=== PATIENT | female | born 1935 | race Caucasian/White ===

== ENCOUNTER 2024-09-12 14:58 | Emergency (ER) | payer MEDICARE, SELFPAY ==
[2024-09-12] VITALS (75 sets, daily range): BP systolic 70–110; BP diastolic 43–90; PULSE 75–89; RESP 10–28; TEMP 36.4–36.6; O2SAT 84–100
--- NOTE | ~2024-09-12 | CT_ITS ---
EXAMINATION: CTA chest PE protocol DATE: 09/12/2024 17:45 INDICATION: Deep venous thrombosis. Hypoxia. TECHNIQUE: Computed tomography angiography (CTA) of the chest was performed with 100 mL Omnipaque-350 intravenous contrast timed to evaluate the pulmonary arteries. Coronal maximum intensity projection 3D-reconstructions were created by the technologist. Automated exposure control and iterative reconst ruction technique were employed. Exam dose: 242.27 mGy-cm total exam DLP. COMPARISON: 09/12/2024 portable AP chest 09/12/2024 venous duplex examination of the lower extremities FINDINGS: Segmental and subsegmental pulmonary artery emboli are noted in both upper lobes, middle lo be and both lower lobes. There is evidence of right ventricular strain. Cardiomegaly. Coronary atherosclerosis. Aortic valve calcification. The ascending aorta measures upper limits diameter at 4 cm. The aortic ar ch measures up to 2.9 cm diameter. No thoracic or abdominal aortic dissection. No pericardial or pleural effusion. No hilar or mediastinal mass lesion or lymphadenopathy. Large hiatal hernia. There are scattered infiltrates and/or atelectasis involving primarily the middle and both lower lobe s and to a lesser extent the lingula. 3 mm middle lobe nodular density (series 4 image 60). 5.3 mm pleural-based middle lobe nodular density (series 4 image 57) Cholelithiasis is incidentally noted. Normal morphology of the adrenal glands. Bilateral nephrolithiasis, more prominent on the left. Bilateral glenohumeral osteoarthritis. Prominent degenerative disease of the lower cervical spine including particularly severe degenerative disc disease at C6-7. Chronic appearing moderate loss of height and anterior wedging of T7. Degenerative disc disease of th e thoracic and lumbar spine. IMPRESSION: Bilateral upper and lower lobe and middle lobe pulmonary emboli and evidence of right ve ntricular strain 2 small middle lobe nodular densities and scattered patchy right mid and bilateral lower lung infiltr ate or atelectasis Cardiomegaly, aortic valve calcification, coronary atherosclerosis Large hiatal hernia Cholelithiasis Bilateral nephrolithiasis Dr. Braxton telephoned the report of extensive bilateral pulmonary emboli involving all lobes and right ventricular strain on 09/12/2024 at 1800 hours to emergency room physician media center assistant Emily. Reviewed, dictated and finalized at [facility]. Reviewed, dictated and finalized at [facility]. IMPRESSION: Bilateral upper and lower lobe and middle lobe pulmonary emboli an d evidence of right ventricular strain 2 small middle lobe nodular densities and scattered patchy right mid and bilate ral lower lung infiltrate or atelectasis Cardiomegaly, aortic valve calcification, coronary atherosclerosis Large hiatal hernia Cholelithiasis Bilateral nephrolithiasis Dr. Braxton telephoned the report of extensive bilateral pulmonary emboli involvin g all lobes and right ventricular strain on 09/12/2024 at 1800 hours to emergenc y room physician media center assistant Emily.
--- NOTE | ~2024-09-12 | CT_ITS ---
EXAMINATION: CTA LE DATE: 09/12/2024 17:04 INDICATION: No left leg pulses, faint right leg pulses TECHNIQUE: Computed tomographic angiography (CTA) of the neck was performed with 100 mL Omnipaque-350 intravenous contrast. Exam dose: 765.64 mGy-cm total exam DLP. COMPARISON: None. FINDINGS: Cardiomegaly. No pericardial effusion. Hiatal hernia. Multiple small stones are noted in the dependent gallbladder. No bile duct dilatation. The upper liver and spleen are excluded from the examination. The liver and spleen otherwise appear u nremarkable. No pancreatic mass lesion or pancreatic duct dilatation. Normal morphology of the adrenal glands. Large nonobstructing left renal calculus measuring up to 10.8 x 12.5 cm. 1.7 cm right renal cyst. No ureteral calculus or hydroureteronephrosis is detected. The urinary bladd er is unremarkable. Retroverted uterus. Diverticulosis of the colon; no CT evidence of diverticulitis. No bowel obstruction or intraperitonea l free air. There is extensive atherosclerotic calcification of the abdominal aorta. The suprarenal abdominal aor ta measures up to 3.1 cm diameter. Normal caliber of the remainder of the abdominal aorta. There is e ctasia and calcification of the common iliac arteries, measuring up to approximately 1.3 cm diameter. However, there is no abdominal aortic left or right common, internal or external iliac, common femora l, femoral, popliteal significant luminal stenosis or occlusion. The trifurcation arteries are intact bilaterally into the lower legs, with opacified dorsalis pedis and posterior tibial artery in the ri ght foot, opacified dorsalis pedis artery to the hindfoot and posterior tibial artery opacification i nto the more distal foot. There is extensive edema of both lower extremities as well as the pelvis. IMPRESSION: Slight suprarenal abdominal aortic aneurysm measuring up to 3.1 cm Ectasia of the common iliac arteries, measuring up to approximately 1.3 cm diameter No significant stenosis or occlusion of the abdominal aorta, iliac or femoral, popliteal arteries; th ere is three-vessel runoff into both lower legs Cardiomegaly Hiatal hernia Cholelithiasis Left nonobstructive nephrolithiasis 1.7 cm right renal cysts Diverticulosis of the colon Reviewed, dictated and finalized at [facility]. Reviewed, dictated and finalized at [facility]. IMPRESSION: Slight suprarenal abdominal aortic aneurysm measuring up to 3.1 cm Ectasia of the common iliac arteries, measuring up to approximately 1.3 cm diam eter No significant stenosis or occlusion of the abdominal aorta, iliac or femoral, popliteal arteries; there is three-vessel runoff into both lower legs Cardiomegaly Hiatal hernia Cholelithiasis Left nonobstructive nephrolithiasis 1.7 cm right renal cysts Diverticulosis of the colon
--- NOTE | ~2024-09-12 | XR_ITS ---
XR chest 1V portable DATE: 09/12/2024 16:08 INDICATION: Dyspnea TECHNIQUE: Portable upright AP chest on 09/12/2024 at 1605 hours COMPARISON: None FINDINGS: Cardiomegaly. Aortic arch calcification. Large hiatal hernia. There is bilateral mid lung linear atelectasis or scarring and bilateral mild infiltrate or atelectas is in both lower lung hurley. No pleural effusion or pulmonary vascular congestion or pneumothorax is evident. Lateral glenohumeral osteoarthritis. Right rotator cuff atrophy. Diffuse osteopenia. IMPRESSION: Cardiomegaly, aortic atherosclerosis Linear atelectasis or scarring in both mid lungs Bilateral mild patchy lower lung infiltrate and/or atelectasis Large hiatal hernia Osteopenia Bilateral glenohumeral osteoarthritis, prominent right rotator cuff atrophy Reviewed, dictated and finalized at [facility].
--- NOTE | ~2024-09-12 | CT_ITS ---
EXAMINATION: CT brain wo con DATE: 09/12/2024 18:54 INDICATION: Rule out cranial hemorrhage TECHNIQUE: Computed tomography (CT) of the head was performed without intravenous contrast. The mA wa s adjusted according to patient size. Iterative reconstruction technique was employed. Exam dose: 68 1.00 mGy-cm total exam DLP. COMPARISON: None FINDINGS: There is some contrast material on board from the 09/12/2024 CT pulmonary scan performed ear lier today. No intracranial mass lesion or hemorrhage or cerebrovascular accident, midline shift or mass effect i s noted. There are bilateral carotid siphon internal carotid artery calcifications. No vertebrobasilar or da silva tid cerebral arterial occlusion is noted. No subdural or epidural hematoma. No orbital mass lesion. Status post bilateral cataract repair. The mastoid air cells and paranasal sinuses are normally developed and aerated. No fracture or bone destruction of the cranial vault. IMPRESSION: No acute intracranial finding or hemorrhage Reviewed, dictated and finalized at [facility]. Reviewed, dictated and finalized at [facility].
--- NOTE | ~2024-09-12 | US_ITS ---
US venous doppler [facility] DATE: 09/12/2024 16:39 INDICATION: Absent left leg pulses, faint pulses on the right TECHNIQUE: Real-time and color flow imaging and Doppler analysis of the veins of both lower extremiti es COMPARISON: None FINDINGS: There is intraluminal thrombus within the right common femoral vein, with only partial comp ression of this vessel. Otherwise there is normal spontaneous and phasic flow, normal color flow signal, and normal augmentat ion and compression of the deep veins of both lower extremities. IMPRESSION: Partial thrombosis of right common femoral vein Reviewed, dictated and finalized at [facility]. Reviewed, dictated and finalized at [facility].
--- NOTE | 2024-09-12 15:33 | ECG_ITS ---
Test Date: 2024-09-12 16:38:38 Measurements Intervals Pauline Rate: 78 P: 54 WV: 194 QRS: -22 QRSD: 106 T: 180 QT: 439 QTc: 502 Interpretive Statements SINUS RHYTHM WITH SINUS ARRHYTHMIA BORDERLINE LEFT AXIS DEVIATION [QRS AXIS < -20] MODERATE T-WAVE ABNORMALITY, CONSIDER ANTEROLATERAL ISCHEMIA [-0.1+ mV T-WAVE IN V3-V6] No previous ECG available for comparison Electronically Signed On 09-12-2024 17:44:16 CDT by Suman Hanley M.D.
--- NOTE | 2024-09-12 15:36 | ED_ITS ---
HPI - Extremity Injury (Lower) General Chief Complaint: Extremity Injury, Lower Stated Complaint: BLE edema Time Seen by Provider: 09/12/24 15:10 History of Present Illness HPI Narrative: 89-year-old female with no known past medical history presents emergency department with family at bedside for edema bilateral lower extremities, right greater than left. Patient states about a month ago her dog jumped on her right lower leg and scratched her resulting in redness and swelling to her leg. The family states they have been attempting to convince the patient to seek medical attention but she has been refusing. They were successful and convincing her to come to the ER today. Last Tdap unknown. She is reporting redness and swelling to the extremity and weeping over the past week. The patient states she has had edema to bilateral lower extremities for a while but is unable to elaborate for how long. She notes she has had increasing exertional dyspnea and orthopnea. States she sleeps sitting up. She denies history of heart failure but notes a family history of heart failure. She does not smoke. Denies history of asthma or COPD, cough or congestion, fevers, nausea vomiting, abdominal pain. She also notes 2 days ago she slipped off of her couch onto the ground. Family reports that she was on the ground for approximately 2 hours until they were able to come home in his sister off of the ground. The patient states she did not hit her head or lose consciousness. She has no other injuries. She denies pain to her legs or feet. Family notes that the patient has not been seen by a medical provider in several years and does not take any medications. Related Data Allergies Allergy/AdvReac Type Severity Reaction Status Date / Time Penicillins Allergy Unknown Unknown Verified 09/12/24 16:23 Review of Systems 2 Review of Systems: All systems reviewed & are unremarkable except as noted in HPI and below Exam 2 Narrative: GENERAL: Well-appearing, well-nourished, and in no acute distress. HEAD: Normocephalic, atraumatic. EYES: PERRLA and EOMI. ENT: Nares clear, no rhinorrhea or epistaxis. Mucous membranes moist. NECK: Supple. CHEST: Clear to auscultation. No respiratory distress. HEART: Regular rate and rhythm. No murmur heard. Normal peripheral pulses. ABDOMEN: Soft, nontender, nondistended, normal active bowel sounds. RECTAL: Chaperoned by Francois Maria: No melena or hematochezia, Hemoccult negative EXTREMITIES: 3+ pitting edema to LLE with purpura to the toes, unable to palpate or doppler DP or PT pulse, cap refill prolonged. RLE4+ pitting edema with weeping, 4cm healing laceration with white base to the anterior tibia, surrounding erythema and warmth to lower extremity extending to the thigh SKIN: Warm, dry, no rash. NEURO: No focal deficits. Alert and oriented x3 Course Vital Signs Vital signs: Vital Signs Respiratory Rate 21 H 09/12/24 15:07 Temperature 97.9 F 09/12/24 22:39 Pulse Rate 79 09/12/24 22:39 Respiratory Rate 19 09/12/24 22:39 Blood Pressure 92/58 L 09/12/24 22:39 Pulse Oximetry 100 09/12/24 22:39 Oxygen Delivery Nasal Cannula 09/12/24 17:36 Oxygen Flow Rate 3 09/12/24 17:36 MDM - Extremity Injury (Lower) MDM Narrative Medical decision making narrative: 89-year-old female with no known past medical history presents to the ED with bilateral lower extremity edema, R>L, redness to the mid lower extremity after her dog scratched her leg month ago, exertional dyspnea and orthopnea. See HPI for further history. Upon arrival to the ED patient was found to be hypotensive at 84/67 and mildly tachypneic at 21. She denies dizziness or lightheadedness, no chest pain. She does appear to be extremely volume overloaded with extensive pitting edema to lower extremities and crackles throughout all lung hurley. Suspect undiagnosed CHF exacerbation, likely decompensated. Will refrain from IV fluids at this time due to concerns for volume overload and provide albumin and Lasix. Lab work shows leukocytosis of 11.3. Hemoglobin is low at 7.1 with a low MCV and MCHC. Patient has no history of GI bleeds, no reported hematochezia or melena. Hemoccult here is negative. Chemistries show creatinine of 1.09, BUN of 40 to, total bilirubin [place] 2[place] [address]. EKG shows sinus rhythm with sinus arrhythmia, normal [place] interval, prolonged QTC of 502, T-wave inversions in the lateral leads, no ST elevations or depressions. Troponin is undetectable. Lactic normal. UA with UTI. CTA of the lower extremities shows slight suprarenal abdominal aortic aneurysm measuring up to 3.1 cm, ectasias the common iliac arteries measuring up to approximately 1.3 cm in diameter, no significant stenosis or occlusion of the abdominal aorta, iliac or femoral, popliteal arteries. There is three-vessel runoff to both lower legs. Several incidental findings were noted on scan report. Bilateral lower extremity venous Doppler show a partial thrombosis of the right common femoral vein. Patient did become hypoxic in the ER and required 3 L of O2 nasal cannula, O2 saturations remained stable at 100% on 3 L. CTA chest PE added given hypoxia and DVT - shows bilateral upper and lower lobe and middle lobe pulmonary emboli and evidence of right ventricular strain. There are 2 small middle lobe nodular densities scattered patchy right mid and bilateral lower lung infiltrate or atelectasis. Patient and family were updated on results. Patient was started on heparin for PEs and DVT. Tdap was updated. She was started on vancomycin cefepime and doxycycline to cover for CAP, UTI and cellulitis. Blood pressure remained stable with a MAP greater than 65 after initiation of albumin. ABG shows hgb of 6.7, likely hemodilution or anemia of chronic disease. Again guaiac negative. Pt given a unit of blood. I did have a long discussion with patient and family at bedside regarding goals of care. Patient would like to be DNR/DNI status. I also discussed possible need for central line. Patient politely declines central line. Plan transfer to higher level of care. Discussed with [facility] ship construction teacher, Dr. Branch who accepts patient for transfer. Lab Data 09/12/24 15:44 09/12/24 15:44 Labs: Lab Results 09/12/24 09/12/24 09/12/24 Range/Units 15:44 15:44 19:53 WBC 11.3 H (4.5-10.0) K/mm3 RBC 4.41 (4.2-5.4) M/mm3 Hgb 7.1 L (12.0-15.0) g/dL Hct 25.3 L (37.0-47.0) % MCV 57.4 L (80-100) fl MCH 16.1 L (26-34) pg MCHC 28.1 L (32-36) g/dl RDW 25.1 H (11.5-14.5) % Plt Count 173 (150-375) k/mm3 MPV 8.8 (7.4-10.4) fl Immature Gran % (Auto) 1.8 H (0-0.5) % Neut % (Auto) 90.5 H (45.5-73.1) % Lymph % (Auto) 2.8 L (18.3-44.2) % Mellette % (Auto) 4.4 (2.6-8.5) % Eos % (Auto) 0.2 (0-4.4) % Baso % (Auto) 0.3 (0.2-1.2) % Lymph # (Auto) 0.31 L (0.9-3.2) K/mm3 Mellette # (Auto) 0.5 (0.1-0.6) K/mm3 Eos # (Auto) 0.0 (0-0.3) K/mm3 Baso # (Auto) 0.0 (0.0-0.1) K/mm3 Abs Immat Gran (auto) 0.20 H (0.00-0.031) K/mm3 Absolute Neuts (auto) 10.2 H (1.3-6.7) K/mm3 Absolute Nucleated RBC 0.130 H (0.0-0.012) K/mm3 Band Neutrophils % Not Reportable Nucleated RBC % 1.2 H (0.0-0.2) % Platelet Estimate Adequate (Adequate) % Immature Plt Fraction 2.2 (0.9-11.2) % Anisocytosis 3+ Target Cells 2+ Ovalocytes 1+ Schistocytes None seen PT 17.4 H (11.1-14.7) Seconds INR 1.4 APTT 35.9 (22.3-36.8) Seconds Sodium 141 (137-145) mmol/L Potassium 4.1 (3.4-5.0) mmol/L Chloride 106 (98-107) mmol/L Carbon Dioxide 23 (22-30) mmol/L Anion Gap 12 (4-12) mmol/L BUN 42 H (7-17) mg/dL Creatinine 1.09 H (0.7-1.0) mg/dL Estim Creat Clear Calc Not Reportable Estimated GFR 47 L (59 - ) Glucose 140 H (65-110) mg/dL Lactic Acid 2.0 (0.7-2.0) mmol/L Calcium 8.3 L (8.4-10.2) mg/dL Magnesium 2.3 (1.6-2.3) mg/dL Total Bilirubin 2.9 H (0.2-1.3) mg/dL AST 30 (14-36) U/L ALT 24 (6-35) U/L Alkaline Phosphatase 116 (38-126) U/L Troponin I < 0.012 Cancelled (0.000-0.034) ng/mL NT-Pro-B Natriuret Pep 41800 H (19.9-100) pg/mL Total Protein 7.0 (6.3-8.2) g/dL Albumin 3.1 L (3.5-5.1) g/dL Lipase 385 H (23-300) U/L Urine Color Yellow (Yellow) Urine Appearance Clear (Clear) Urine pH 5.0 (5.0-9.0) Ur Specific Sherrill 1.022 (1.001-1.035) Urine Protein Negative (Negative) mg/dL Urine Glucose (UA) Negative (Negative) mg/dL Urine Ketones Negative (Negative) mg/dL Ur Blood (Man) Trace (Negative) Urine Nitrate Positive H (Negative) Urine Bilirubin Negative (Negative) Urine Urobilinogen 1.0 (<2.0) mg/dL Leukocyte Esterase Rfl 1+ H (Negative) MICHAEL/UL Urine RBC 3-5 H (0-2) /hpf Urine WBC 21-50 H (0-3) /hpf Ur Squamous Epith Cells None seen (Few) /hpf Urine Bacteria 4+ H /hpf Urine Casts 3-5 Nasal MRSA (PCR) Influenza A (RT-PCR) Negative (Negative) Influenza B (RT-PCR) Negative (Negative) RSV (RT-PCR) Negative (Negative) SARS-CoV-2 RNA (RT-PCR) Negative (Negative) Blood Type O Positive Antibody Screen Negative Crossmatch See Detail 09/12/24 Range/Units 22:13 WBC (4.5-10.0) K/mm3 RBC (4.2-5.4) M/mm3 Hgb (12.0-15.0) g/dL Hct (37.0-47.0) % MCV (80-100) fl MCH (26-34) pg MCHC (32-36) g/dl RDW (11.5-14.5) % Plt Count (150-375) k/mm3 MPV (7.4-10.4) fl Immature Gran % (Auto) (0-0.5) % Neut % (Auto) (45.5-73.1) % Lymph % (Auto) (18.3-44.2) % Mellette % (Auto) (2.6-8.5) % Eos % (Auto) (0-4.4) % Baso % (Auto) (0.2-1.2) % Lymph # (Auto) (0.9-3.2) K/mm3 Mellette # (Auto) (0.1-0.6) K/mm3 Eos # (Auto) (0-0.3) K/mm3 Baso # (Auto) (0.0-0.1) K/mm3 Abs Immat Gran (auto) (0.00-0.031) K/mm3 Absolute Neuts (auto) (1.3-6.7) K/mm3 Absolute Nucleated RBC (0.0-0.012) K/mm3 Band Neutrophils % Nucleated RBC % (0.0-0.2) % Platelet Estimate (Adequate) % Immature Plt Fraction (0.9-11.2) % Anisocytosis Target Cells Ovalocytes Schistocytes PT (11.1-14.7) Seconds INR APTT (22.3-36.8) Seconds Sodium (137-145) mmol/L Potassium (3.4-5.0) mmol/L Chloride (98-107) mmol/L Carbon Dioxide (22-30) mmol/L Anion Gap (4-12) mmol/L BUN (7-17) mg/dL Creatinine (0.7-1.0) mg/dL Estim Creat Clear Calc Estimated GFR (59 - ) Glucose (65-110) mg/dL Lactic Acid (0.7-2.0) mmol/L Calcium (8.4-10.2) mg/dL Magnesium (1.6-2.3) mg/dL Total Bilirubin (0.2-1.3) mg/dL AST (14-36) U/L ALT (6-35) U/L Alkaline Phosphatase (38-126) U/L Troponin I (0.000-0.034) ng/mL NT-Pro-B Natriuret Pep (19.9-100) pg/mL Total Protein (6.3-8.2) g/dL Albumin (3.5-5.1) g/dL Lipase (23-300) U/L Urine Color (Yellow) Urine Appearance (Clear) Urine pH (5.0-9.0) Ur Specific Sherrill (1.001-1.035) Urine Protein (Negative) mg/dL Urine Glucose (UA) (Negative) mg/dL Urine Ketones (Negative) mg/dL Ur Blood (Man) (Negative) Urine Nitrate (Negative) Urine Bilirubin (Negative) Urine Urobilinogen (<2.0) mg/dL Leukocyte Esterase Rfl (Negative) MICHAEL/UL Urine RBC (0-2) /hpf Urine WBC (0-3) /hpf Ur Squamous Epith Cells (Few) /hpf Urine Bacteria /hpf Urine Casts Nasal MRSA (PCR) Pending Influenza A (RT-PCR) (Negative) Influenza B (RT-PCR) (Negative) RSV (RT-PCR) (Negative) SARS-CoV-2 RNA (RT-PCR) (Negative) Blood Type Antibody Screen Crossmatch ABG Data ABG results: 09/12/24 19:51 Puncture Site Left radial ABG pH 7.362 ABG pCO2 39.9 ABG pO2 79.7 L ABG PO2/FiO2 Ratio 2.66 ABG HCO3 22.1 ABG O2 Saturation 95.4 ABG O2 Content 8.8 L ABG Base Excess -3.0 A-a Gradient 87.3 Oxyhemoglobin 92.0 Total Hemoglobin 6.7 L* O2 Delivery Device Nasal cannula O2 Liters/Min 3.0 FiO2 30 Discharge Plan Discharge Clinical Impression: Volume overload, CAP (community acquired pneumonia), Cellulitis, Cardiomegaly, Pulmonary embolism, Abdominal aortic aneurysm, DVT (deep venous thrombosis), Acute UTI, Hypochromic microcytic anemia, NIESHA (acute kidney injury), Acute hypoxic respiratory failure Patient Disposition: Acute Care Hospital Condition: Guarded Prognosis Patient Language: Brazilian Follow-up/Referrals: PHYSICIAN NOT ON STAFF,NONSTAFF [Primary Care Provider] -
[2024-09-12 15:53] LABS: Basophils Percent Auto 0.3 % (0.2-1.2); Eosinophils Percent Auto 0.2 % (0-4.4); Hematocrit 25.3 % (37.0-47.0); Hemoglobin 7.1 g/dL (12.0-15.0); Immature Granulocyte Percent A 1.8 % (0-0.5); Immature Platelet Fraction Pct 2.2 % (0.9-11.2); Lymphocytes Absolute Auto 0.31 K/mm3 (0.9-3.2); Lymphocytes Percent Auto 2.8 % (18.3-44.2); Mean Corpuscular HGB Conc 28.1 g/dl (32-36); Mean Corpuscular Hemoglobin 16.1 pg (26-34); Mean Corpuscular Volume 57.4 fl (80-100); Mean Platelet Volume 8.8 fl (7.4-10.4); Monocytes Absolute Auto 0.5 K/mm3 (0.1-0.6); Monocytes Percent Auto 4.4 % (2.6-8.5); Neutrophils Absolute Auto 10.2 K/mm3 (1.3-6.7); Neutrophils Percent Auto 90.5 % (45.5-73.1); Nucleated Red Blood Cells Perc 1.2 % (0.0-0.2); Platelet Count Result 173 k/mm3 (150-375); Red Blood Count 4.41 M/mm3 (4.2-5.4); Red Cell Distribution Width 25.1 % (11.5-14.5); White Blood Count 11.3 K/mm3 (4.5-10.0)
[2024-09-12 16:01] LABS: Alanine Aminotransferase 24 U/L (6-35); Albumin Level 3.1 g/dL (3.5-5.1); Alkaline Phosphatase 116 U/L (38-126); Anion Gap 12 mmol/L (4-12); Aspartate Amino Transferase 30 U/L (14-36); Bilirubin,Total 2.9 mg/dL (0.2-1.3); Blood Urea Nitrogen 42 mg/dL (7-17); Calcium 8.3 mg/dL (8.4-10.2); Carbon Dioxide 23 mmol/L (22-30); Chloride 106 mmol/L (98-107); Estimated Glomerular Filt Rate 47; Glucose 140 mg/dL (65-110); Lipase 385 U/L (23-300); Magnesium 2.3 mg/dL (1.6-2.3); Potassium 4.1 mmol/L (3.4-5.0); Sodium 141 mmol/L (137-145)
[2024-09-12 16:05] LABS: INR 1.4; Prothrombin Time 17.4 Seconds (11.1-14.7)
[2024-09-12 16:06] LABS: Partial Thromboplastin Time 35.9 Seconds (22.3-36.8)
[2024-09-12 16:13] LABS: NT Pro B Type Natriuretic Pept 18300 pg/mL (19.9-100); Troponin I < 0.012 ng/mL (0.000-0.034)
[2024-09-12 16:21] LABS: Platelet Estimate Adequate (Adequate)
[2024-09-12 16:22] LABS: Anisocytosis 3+; Ovalocytes 1+; Schistocytes None Seen; Target Cells 2+
--- NOTE | 2024-09-12 16:51 | PC.NURSE ---
EKG completion delayed due to x-ray and then US at patient bedside.
[2024-09-12] MEDS: ALBUMIN HUMAN 5% 25 GM/500 ML BTL IV CONT (17:17)
[2024-09-12] MEDS: TETANUS,DIPHTHERIA,AC PERTUSSIS ADULT (0.5 ML) BOOSTRIX IM (17:22)
[2024-09-12] MEDS: FUROSEMIDE INJ 40 MG/4 ML VIAL 20 MG IV PUSH (17:23)
--- NOTE | 2024-09-12 19:10 | PC.NURSE ---
discussed placement of real catheter with patient and family members at bedside. patient agrees to catheter placement for use of measurement for intake and output
[2024-09-12] MEDS: CEFEPIME 2 GM/NS 50 ML 2 GM/50 ML BAG IVPB (19:45)
--- NOTE | 2024-09-12 19:56 | PC.NURSE ---
spoke with eloise in pharmacy at this time about change in vancomycin dose
[2024-09-12 20:01] LABS: Alveolar/Arterial O2 Gradient 87.3 mmHg; Fractional Inspired Oxygen 30 %; HCO3 ABG 22.1 mEq/l (22.0-26.0); Oxygen Content ABG 8.8 %vol (16.0-22.0); Oxygen Saturation ABG 95.4 % (95.0-100.0); PCO2 ABG 39.9 mmHg (35.0-45.0); PO2 ABG 79.7 mmHg (80.0-100.0); PO2 FiO2 Ratio Arterial Blood 2.66 %; pH ABG 7.362 (7.350-7.450)
[2024-09-12] MEDS: HEPARIN SODIUM 5,000 UNITS/ML VIAL 4500 UNITS IV PUSH (20:03)
[2024-09-12] MEDS: HEPARIN SOD/D5W 100 UNITS/ML 25,000 UNITS/250 ML BAG 10 UNITS IV CONT (20:03)
[2024-09-12 20:04] LABS: Device NASAL CANNULA; Modified Allen's Test Pass; Site Drawn LEFT RADIAL; Total Hemoglobin 6.7 g/dL (12.0-18.0)
[2024-09-12 20:04] LABS: Add Urine Microscopic? YES; Appearance Urine Clear (Clear); Bacteria Urine 4+ /hpf; Bilirubin Urine Negative (Negative); Blood Urine Trace (Negative); Color Urine Yellow (Yellow); Glucose Urine UA Negative (Negative); Ketones Urine Negative (Negative); Leukocyte Esterase Ur 1+ LEU/UL (Negative); Nitrate Urine Positive (Negative); Protein Urine Negative (Negative); Specific Grav Ur 1.022 (1.001-1.035); Squamous Epithelial Cell Urine None Seen /hpf (Few); WBC Urine 21-50 /hpf (0-3)
[2024-09-12 20:33] LABS: Influenza A QL RT-PCR Negative (Negative); Influenza B QL RT-PCR Negative (Negative); RSV RNA, RT-PCR Negative (Negative); SARS-CoV-2 RNA PCR Negative (Negative)
--- NOTE | 2024-09-12 21:25 | PC.NURSE ---
pt yelled out that her arm was bleeding. upon assessment iv was removed and bleeding, pressure dressing placed and new iv obtained
[2024-09-12] MEDS: DOXYCYCLINE 100 MG/NS 100 ML 100 MG/100 ML BAG IVPB (21:32)
[2024-09-12] MEDS: SODIUM CHLORIDE 0.9% IV 250 ML 30 ML IV CONT (22:42)
--- NOTE | 2024-09-12 23:02 | PC.NURSE ---
Assumed care of pt from RADHA Lin. Pt receiving blood transfusion and heparin infusion at this time. VS updated on worklist. Pt hypotensive, EDP kimberley aware. Consent obtained for transfer to [facility]. Awaiting bed placement.
[2024-09-12 23:12] LABS: MRSA (PCR) NOT DETECTED (NOT DETECTE)
== END 2024-09-12 23:50 | disposition short-term general hospital (02) ==
PROVIDERS: Emergency Provider Physician Assistant
DX: I26.99 Other pulmonary embolism without acute cor pulmonale (principal); I82.411 Acute embolism and thrombosis of right femoral vein; I71.40 Abdominal aortic aneurysm, without rupture, unspecified; N17.9 Acute kidney failure, unspecified; J96.01 Acute respiratory failure with hypoxia; J18.9 Pneumonia, unspecified organism; N39.0 Urinary tract infection, site not specified; L03.115 Cellulitis of right lower limb; I51.7 Cardiomegaly; D50.9 Iron deficiency anemia, unspecified; E87.70 Fluid overload, unspecified; Z20.822 Contact with and (suspected) exposure to COVID-19; Z23 Encounter for immunization; Z66 Do not resuscitate; R94.31 Abnormal electrocardiogram [ECG] [EKG]; I70.0 Atherosclerosis of aorta; K44.9 Diaphragmatic hernia without obstruction or gangrene; M19.012 Primary osteoarthritis, left shoulder; M19.011 Primary osteoarthritis, right shoulder; M62.511 Muscle wasting and atrophy, not elsewhere classified, right shoulder; M85.80 Other specified disorders of bone density and structure, unspecified site
CPT/HCPCS: 36415; 36430; 36600; 70450; 71045; 71275; 73706; 80053; 81001; 82805; 83605; 83690; 83735; 83880; 84484; 85018; 85025; 85055; 85610; 85730; 86850; 86900; 86901; 86923; 87040; 87086; 87186; 87637; 87641; 90471; 90715; 93005; 93970; 96365; 96367; 96375; 96376; 99285; J0692; J1644; J1940; J7050; P9016; P9045; Q9967